=== PATIENT | female | born 1940 | race Asian ===

== ENCOUNTER 2016-04-13 08:12 | Inpatient (IN) | payer OTHER, MEDICARE ==
[2016-04-13] MEDS ORDERED: MECLIZINE HCL 25 MG TAB PO PRN (15:05)
[2016-04-13] MEDS ORDERED: IPRATROPIUM/ALBUTEROL 3 ML DEYVIAL NEB PRN (15:05)
[2016-04-13] MEDS ORDERED: BISACODYL 10 MG SUPP PR PRN (15:06)
--- NOTE | 2016-04-13 15:51 | PDOREHIP ---
Admission [facility] - Admission - 3 Day Assessment Period Admission Date/Day 1: 04/13/16 Day 2: 04/14/16 Day 3: 04/15/16 - Active Diagnoses Comorbidities and Co-existing Conditions at Admission: 47514. None of the Above - Skin Conditions Unhealed Pressure Ulcer (1 or more/Stage 1 or >)-Admission: 0. No
[2016-04-13] MEDS: ACETAMINOPHEN 650 MG/20.3 ML UDCUP PO PRN ×2 (16:51→17:25)
--- NOTE | 2016-04-13 17:01 | GHP ---
[f rep st] HISTORY AND PHYSICAL POST ADMISSION PHYSICIAN EVALUATION AND REHABILITATION TREATMENT PLAN DATE OF ADMISSION: 04/13/2016 DATE OF EVALUATION: 04/13/2016 TIME OF EVALUATION: 1510. REFERRING FACILITY: [facility]. REFERRING PHYSICIAN: Dr. Huitron CONSULTING PHYSICIAN: She was seen by Dr. Landa of Neurosurgery and Dr. Loera of Neurology/Interventional Radiology. REHABILITATION DIAGNOSIS: Debility following subarachnoid hemorrhage. IMPAIRMENT GROUP: 2.1. ETIOLOGIC DIAGNOSIS: Nontraumatic brain dysfunction. DATE OF ONSET: 03/22/2016 DATE OF SURGERY: 03/22/2016 HISTORY OF PRESENT ILLNESS: Mrs. Jenkins was admitted to [facility] after a syncopal event with possible brief loss of consciousness. She had a head CT which showed a subarachnoid hemorrhage, so she was transferred to [facility]. 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 She underwent coiling of the aneurysm per neuro whirley operator, Dr. Loera. She had an endoventricular drain placed by neurosurgeon, Dr. Landa on 03/22/2016, which was removed on 04/01/2016. Hospital course was complicated by a urinary tract infection, and respiratory failure due to decreased level of consciousness. She was intubated, extubated, and had to be intubated again. Additionally, she had a groin hematoma. She had anemia. There was diarrhea which was negative for Clostridium difficile. She had dysphagia which has resolved. There was a Dobbhoff tube placed for nutritional support which was subsequently removed. She had oral thrush, and she has had hyponatremia. STUDIES AND LABS IN THE HOSPITAL: I do not have a comprehensive list. PRECAUTIONS: She is a fall risk. ACTIVE COMORBIDITIES: She has no active tier 1, tier 2, or tier 3 comorbidities. PAST MEDICAL HISTORY: 1. Hypothyroidism. 2. Vertigo. PAST SURGICAL HISTORY: She has had a hysterectomy. PRE-HOSPITAL MEDICATIONS: She was taking estradiol and meclizine. ADMISSION MEDICATIONS: 1. Albuterol/ipratropium nebulizer q.4 hours p.r.n. 2. Calcium carbonate 500 mg p.o. twice daily. 3. Ciprofloxacin 500 mg p.o. twice daily through 04/19/2016. 4. Levothyroxine 50 mcg p.o. daily. 5. Meclizine 25 mg p.o. twice daily p.r.n. vertigo. 6. Mometasone 1 puff daily. 7. Pyridoxine 50 mg p.o. daily. 8. Sodium chloride 1000 mg p.o. three times daily. 9. Lactobacillus probiotic 1 capsule p.o. daily. 10. Ocuvite 1 p.o. daily. ALLERGIES: There are no known drug allergies. FAMILY HISTORY: She believes she has a brother who had a cerebral aneurysm. PSYCHOSOCIAL HISTORY: She is a since 2002. She lives with a male roommate at a condominium in [place]; however, she states she is selling the condominium and "done with men" as they leave her to do all the clean up. She is a nonsmoker. She does not use alcohol. She worked for [employer] at one time, and that is where she met her . 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 REVIEW OF SYSTEMS: She reports she has a mild headache, and she has had some right leg pain when she has been ambulating. She denies vision changes, difficulty swallowing, weakness, numbness or tingling of the extremities. She denies cough or dyspnea. She denies fevers or chills. She denies anorexia, nausea, vomiting or constipation. She denies dysuria or urinary frequency, and is not aware that she has had a diagnosis of a urinary tract infection. She denies joint pain or joint swelling. She is in good spirits and other than that , a 10-point review of systems is negative. PHYSICAL EXAM: VITAL SIGNS: Blood pressure is 158/82, heart rate is 79, respiratory rate is 14, oxygen saturation is 98% on room air, temperature is 37.1 degrees Centigrade. Her weight is 52.6 kg. Her body mass index is 24.2. GENERAL: This is a well-nourished, well-developed, petite woman who appears her chronologic age, cooperative and in no acute distress. HEENT: Extraocular movements are intact. Pupils are equal, round, and reactive to light and accommodation. Mucous membranes are moist. Dentition is in good condition. NECK: Supple. HEART: There is a regular rate and rhythm with no murmurs, rubs , or gallops. LUNGS: Clear to auscultation bilaterally. ABDOMEN: Soft, nontender, nondistended with normoactive bowel sounds and no hepatosplenomegaly. EXTREMITIES: There is no cyanosis, clubbing, or edema. Radial and dorsalis pedis pulses are 2+ bilaterally. NEUROLOGIC: She is alert and oriented x3. Cranial nerves 2-12 are grossly intact. There is no focal weakness. Sensation is intact to light touch. Deep tendon reflexes are globally hypoactive. SKIN: Warm and dry, and there is no skin breakdown noted. CURRENT LEVEL OF FUNCTION: Per the pre-admission screen, regarding diet, feeding, and swallowing, she was on a regular diet and she was able to feed herself independently. Regarding dressing for the lower body, she needed standby assist and voice cuing to stay on task, and it took extra time. Regarding toileting, she was dependent for lily care. She needed minimal assist for transfers, using grab bars and a front-wheeled walker. Regarding bladder, she was noted to be incontinent. Bed mobility required maximal assistance x2, but her bed mobility was considerably better on exam today. Transfers required minimal assistance. Balance required minimal assistance. Endurance was fair. Gait required moderate assistance with max cues to keep the walker close and occasional assistance to negotiate the environment. Regarding communication, she was noted to have slow processing with delayed and slurred speech. Regarding cognition, she had impairment of attention, memory and thought. She was considered to be a fall risk. IMPRESSION: Mrs. Ki Jenkins is a 76-year-old woman who suffered a subarachnoid hemorrhage from a left internal carotid artery aneurysm. The aneurysm has been coiled by Neurointerventional Radiology. She had an intraventricular drain placed. She had significant deficits including dysphagia which have resolved. She was diagnosed with a urinary tract infection which is being treated, and she had hyponatremia which is apparently adequately treated with salt tablets. She is left with debility. At this point , it is unclear whether it is specifically due to the subarachnoid hemorrhage versus prolonged hospitalization. She will benefit from physical therapy and occupational therapy to optimize her mobility and performance of activities of daily living and from speech and language pathology to assess and treat any cognitive dysfunction which might be continuing. She needs rehabilitation nursing care for bowel and bladder management including recent urinary incontinence, nutrition and fall risk. She will benefit from close medical management for risk of changes in neurologic function, for hyponatremia and for respiratory status. Her goal is to return to her own home versus her daughter's home with supportive home health care services. For a safe discharge, she will need to have independence with eating, grooming and bed mobility, modified independence for transfers and ambulation for household distances, and standby assistance for stair climbing. She should be tolerating a regular diet with appropriate number of calories. She will need to have cognition sufficient to be able to be left alone for short periods of time. She will have physical therapy, occupational therapy, and speech and language pathology for 60 minutes per day on 5-7 days per week. Her expected duration of stay is 10-14 days. It is anticipated that upon discharge, she will continue to benefit from home health services, including nursing, speech and language pathology, a nurse's aide, and occupational therapy. ASSESSMENT AND PLAN: 1. Debility with deficits to mobility and activities of daily living following subarachnoid hemorrhage from a left internal carotid artery aneurysm on 2015 and neurointerventional radiology coiling procedure. Physical and occupational therapy to optimize mobility and activities of daily living. 2. Possible cognitive impairment. Assessment and treatment per Speech and Language Pathology. 3. Hyponatremia. Continue salt tablets. Will check basic metabolic profile in the morning, and ideally the salt tablets can be tapered with continued monitoring of her electrolytes to ensure that she does not have recurrent hyponatremia. 4. Urinary tract infection. Continue ciprofloxacin as ordered out of the hospital through April 19, 2016. 5. Anemia. Will check a CBC in the morning. 6. History of vertigo. This is preexisting and predates the discovery of the aneurysm. Query whether the aneurysm was involved in causing the vertigo prior to its rupture. She will be continued on meclizine on an as-needed basis. 7. Hypothyroidism. Continue her levothyroxine supplement. 8. Postmenopausal and post hysterectomy. She was taking estradiol prior to her hospitalization. Has not been continued. If she has return of postmenopausal symptoms, will consider resuming. 9. History of respiratory failure while in the hospital. She comes with the prescriptions for albuterol/ipratropium nebulizer on a p.r.n. basis as well as an inhaled steroid. If her respiratory status remains stable and she is not requiring a nebulizer treatment, consider discontinuing the inhaled steroid. /[id number]/MODL MTDD
[2016-04-13] MEDS: SODIUM CHLORIDE 1,000 MG TAB PO SCH ×2 (17:25→23:53)
[2016-04-13] MEDS: oxyCODONE IR 5 MG TAB PO PRN (19:58)
[2016-04-13] MEDS: CIPROFLOXACIN 500 MG TAB PO SCH (23:53)
[2016-04-13] MEDS: CALCIUM CARBONATE 500 MG TAB PO SCH (23:53)
[2016-04-13] MEDS: ATORVASTATIN CALCIUM 10 MG TAB PO SCH (23:53)
[2016-04-14] MEDS: oxyCODONE IR 5 MG TAB PO PRN ×2 (00:18→20:18)
[2016-04-14] MEDS: LEVOTHYROXINE 50 MCG TAB PO SCH (05:02)
[2016-04-14 08:48] LABS: % IMMATURE GRANULYOCYTES 1.1 % (0.0-1.1); ABSOLUTE IMMATURE GRANULOCYTES 0.04 10^3/uL (0.00-0.10); ADD DIFF? NO; ADD MORPH? NO; ADD SCAN? NO; ATYPICAL LYMPHOCYTE FLAG 30 (0-99); FRAGMENT RBC FLAG 0 (0-99); HEMATOCRIT 29.7 % (38.0-47.0); HEMOGLOBIN 9.9 g/dL (12.6-16.3); LEFT SHIFT FLG 10 (0-99); LIPEMIA HEMOLYSIS FLAG 80 (0-99); MEAN CELL HEMOGLOBIN CONCENTR. 33.3 g/dL (32.4-36.7); MEAN CELL VOLUME 96.1 fL (81.5-99.8); MEAN PLATELET VOLUME 8.9 fL (8.7-11.7); PLATELET CLUMPS FLAG 10 (0-99); PLATELET COUNT 460 10^3/uL (150-400); RED BLOOD CELL COUNT 3.09 10^6/uL (4.18-5.33); RED CELL DISTRIBUTION WIDTH 16.2 % (11.5-15.2)
[2016-04-14] MEDS ORDERED: Herbals/Supplements -Info Only PO SCH (09:00)
[2016-04-14 09:03] LABS: ANION GAP 9 mEq/L (8-16); CALCIUM 8.9 mg/dL (8.5-10.4); CARBON DIOXIDE 26 mEq/l (22-31); CHLORIDE 99 mEq/L (97-110); CREATININE 0.5 mg/dL (0.6-1.0); GLOMERULAR FILTRATION RATE > 60; GLUCOSE 78 mg/dL (70-100); POTASSIUM 4.2 mEq/L (3.5-5.2); SODIUM 134 mEq/L (134-144)
[2016-04-14] MEDS: CALCIUM CARBONATE 500 MG TAB PO SCH ×2 (09:34→20:18)
[2016-04-14] MEDS: PYRIDOXINE HCL 25 MG TAB PO SCH (09:34)
[2016-04-14] MEDS: CIPROFLOXACIN 500 MG TAB PO SCH ×2 (09:34→20:18)
[2016-04-14] MEDS: SODIUM CHLORIDE 1,000 MG TAB PO SCH ×3 (09:34→20:18)
[2016-04-14] MEDS: PRESERVISION AREDS2 FORMULA EYE VIT 1 EACH PO SCH (09:35)
[2016-04-14] MEDS: CYANO/VITAMIN B12 1000 MCG TAB PO SCH (09:35)
[2016-04-14] MEDS: ACETAMINOPHEN 650 MG/20.3 ML UDCUP PO PRN ×2 (09:42→18:00)
--- NOTE | 2016-04-14 10:32 | SOAPPROG ---
SOAP Progress Note Assessment/Plan: Assessment: *Debility-PT and OT assessment today. Trial in parallel bars and gait training. Has UE/LE strength WFLs *Cogntive impairment-ST evaluated this am. *Hyponatremia- Na this am 134. Will d/c salt tabs in am. *UTI- On Cipro. Encourage fluids. Timed voids. *Anemia- H/H THIS AM 9.9/29.7. May see a slight drop as she hydrates. Recheck on Saturday. Plan: 04/14/16 10:32 Subjective: No c/o this am. No dizziness. Objective: Vital Signs Temp Pulse Resp BP Pulse Ox 36.8 C 80 15 145/60 H 95 04/14/16 06:22 04/14/16 06:22 04/14/16 06:22 04/14/16 06:22 04/14/16 06:22 Laboratory Results 04/14/16 05:15 04/14/16 05:15 04/13/16 04/14/16 04/15/16 05:59 05:59 05:59 Intake Total 250 236 Output Total 1300 200 Balance -1050 36 Physical Exam - Physical Exam General Appearance: WD/WN, no apparent distress EENT: PERRL/EOMI Neck: supple Respiratory: lungs clear Cardiac/Chest: No edema, No JVD Abdomen: non-tender, soft Neuro/Psych: alert (UE/LE strength is WFLs), normal mood/affect, oriented x 3 ICD10 Worksheet Patient Problems: Problems Problem Status Diagnosed Hyponatremia Acute SAH (subarachnoid hemorrhage) Acute UTI (urinary tract infection) Acute
[2016-04-14] MEDS: MOMETASONE 220MCG INHALER IH SCH (11:07)
[2016-04-14] MEDS: ATORVASTATIN CALCIUM 10 MG TAB PO SCH (20:18)
[2016-04-15] MEDS: LEVOTHYROXINE 50 MCG TAB PO SCH (05:27)
[2016-04-15] MEDS: PRESERVISION AREDS2 FORMULA EYE VIT 1 EACH PO SCH (09:31)
[2016-04-15] MEDS: CIPROFLOXACIN 500 MG TAB PO SCH ×2 (09:31→19:58)
[2016-04-15] MEDS: CYANO/VITAMIN B12 1000 MCG TAB PO SCH (09:31)
[2016-04-15] MEDS: CALCIUM CARBONATE 500 MG TAB PO SCH ×2 (09:31→19:59)
[2016-04-15] MEDS: SODIUM CHLORIDE 1,000 MG TAB PO SCH ×2 (09:32→16:25)
[2016-04-15] MEDS: PYRIDOXINE HCL 25 MG TAB PO SCH (09:39)
[2016-04-15] MEDS: MOMETASONE 220MCG INHALER IH SCH (09:39)
--- NOTE | 2016-04-15 11:30 | SOAPPROG ---
SOAP Progress Note Assessment/Plan: Assessment: *Debility-PT and OT assessment today. Trial in parallel bars and gait training. Has UE/LE strength WFLs *Cogntive impairment-Per ST patient has some word apraxia and mild cognitive deficits but no aphasia or dysphagia. *Hyponatremia- Na this am 134. Will d/c salt tabs in am. *UTI- On Cipro. Encourage fluids. Timed voids. *Anemia- H/H THIS AM 9.9/29.7. May see a slight drop as she hydrates. Recheck on Saturday. Plan: 04/14/16 10:32 04/15/16 11:26 Subjective: No new problems reported by nursing or therapy staff. She denies RICHEY, dizziness or visual disturbances. Objective: Vital Signs Temp Pulse Resp BP Pulse Ox 36.8 C 95 18 141/65 H 93 04/15/16 05:22 04/15/16 05:22 04/15/16 05:22 04/15/16 05:22 04/15/16 05:22 Laboratory Results 04/14/16 05:15 04/14/16 05:15 04/14/16 04/15/16 04/16/16 05:59 05:59 05:59 Intake Total 250 472 Output Total 1300 1200 Balance -1050 -728 Physical Exam - Physical Exam General Appearance: WD/WN, alert, no apparent distress EENT: PERRL/EOMI Neck: supple Respiratory: lungs clear, normal breath sounds Cardiac/Chest: No edema, No JVD Abdomen: normal bowel sounds, non-tender, soft Skin: normal color, warm/dry, other (Scalp incision healing well, [address]) Extremities: No swelling, No Berry's sign Neuro/Psych: alert, normal mood/affect, cognition abnormalities (mild cognitive deficits per ST) ICD10 Worksheet Patient Problems: Problems Problem Status Diagnosed Hyponatremia Acute SAH (subarachnoid hemorrhage) Acute UTI (urinary tract infection) Acute
[2016-04-15] MEDS: oxyCODONE IR 5 MG TAB PO PRN ×2 (14:21→19:58)
[2016-04-15] MEDS: ACETAMINOPHEN 650 MG/20.3 ML UDCUP PO PRN (18:44)
[2016-04-15] MEDS: ATORVASTATIN CALCIUM 10 MG TAB PO SCH (19:58)
[2016-04-16] MEDS: SODIUM CHLORIDE 1,000 MG TAB PO SCH ×2 (04:05→09:35)
[2016-04-16] MEDS: LEVOTHYROXINE 50 MCG TAB PO SCH (05:03)
--- NOTE | 2016-04-16 09:01 | SOAPPROG ---
TOM Progress Note Assessment/Plan: Assessment: 1. Debility with deficits to mobility and activities of daily living following subarachnoid hemorrhage from a left internal carotid artery aneurysm on 2015 and neurointerventional radiology coiling procedure. Physical and occupational therapy to optimize mobility and activities of daily living. 2. Possible cognitive impairment. Assessment and treatment per Speech and Language Pathology. 3. Hyponatremia. Continue salt tablets. Will check basic metabolic profile in the morning, and ideally the salt tablets can be tapered with continued monitoring of her electrolytes to ensure that she does not have recurrent hyponatremia. 4. Urinary tract infection. Continue ciprofloxacin as ordered out of the hospital through April 19, 2016. 5. Anemia. Will check a CBC in the morning. 6. History of vertigo. This is preexisting and predates the discovery of the aneurysm. Query whether the aneurysm was involved in causing the vertigo prior to its rupture. She will be continued on meclizine on an as-needed basis. 7. Hypothyroidism. Continue her levothyroxine supplement. 8. Postmenopausal and post hysterectomy. She was taking estradiol prior to her hospitalization. Has not been continued. If she has return of postmenopausal symptoms, will consider resuming. 9. History of respiratory failure while in the hospital. She comes with the prescriptions for albuterol/ipratropium nebulizer on a p.r.n. basis as well as an inhaled steroid. If her respiratory status remains stable and she is not requiring a nebulizer treatment, consider discontinuing the inhaled steroid. 04/16/16 09:01 Objective: Vital Signs Temp Pulse Resp BP Pulse Ox 36.9 C 89 18 137/67 H 92 04/15/16 20:00 04/15/16 20:00 04/15/16 20:00 04/15/16 20:00 04/15/16 20:00 Laboratory Results 04/14/16 05:15 04/14/16 05:15 04/15/16 04/16/16 04/17/16 05:59 05:59 05:59 Intake Total 472 472 200 Output Total 1200 350 Balance -728 122 200 ICD10 Worksheet Patient Problems: Problems Problem Status Diagnosed Hyponatremia Acute SAH (subarachnoid hemorrhage) Acute UTI (urinary tract infection) Acute
[2016-04-16] MEDS: PRESERVISION AREDS2 FORMULA EYE VIT 1 EACH PO SCH (09:33)
[2016-04-16] MEDS: CALCIUM CARBONATE 500 MG TAB PO SCH ×2 (09:33→19:41)
[2016-04-16] MEDS: CIPROFLOXACIN 500 MG TAB PO SCH ×2 (09:34→19:41)
[2016-04-16] MEDS: MOMETASONE 220MCG INHALER IH SCH (09:34)
[2016-04-16] MEDS: CYANO/VITAMIN B12 1000 MCG TAB PO SCH (09:51)
[2016-04-16] MEDS: PYRIDOXINE HCL 25 MG TAB PO SCH (11:58)
--- NOTE | 2016-04-16 12:46 | SOAPPROG ---
SOAP Progress Note Assessment/Plan: Assessment: 76 yo F s/p subarachnoid hemorrhage from a left internal carotid artery aneurysm on 03/22/2016 and neurointerventional radiology coiling procedure: * Debility with deficits to mobility and activities of daily living. Initial FIM 62 on 04/16/16. Decreased safety awareness. Walked 100' FWW SBA. Min A bed mobility, SBA - CGA sit to stand. ADLs set-up, supervision to CGA except bathing min A. Decreased sitting balance with listing to L. Continue physical and occupational therapy to optimize mobility and activities of daily living. * Cognitive impairment, with STM deficit. Continue treatment per Speech and Language Pathology. * Hyponatremia. Continue salt tablets. Na 134 2on 04/14/16; change NaCl to 1000 mg QD from TID starting 04/16/16; recheck BMP 04/18/16. * Urinary tract infection. Continue ciprofloxacin as ordered out of the hospital through April 19, 2016. * Anemia. H/H 9.9/29.7 on 04/14/16. Recheck 04/18/16.. * History of vertigo. Not using meclizine; may be resolved. * Hypothyroidism. Continue her levothyroxine supplement. * Postmenopausal and post hysterectomy. She was taking estradiol prior to her hospitalization. Has not been continued. If she has return of postmenopausal symptoms, will consider resuming. * History of respiratory failure while in the hospital. Not using albuterol/ ipratropium nebulizer; change to MDI PRN. D/C inhaled steroid. Attended staffing, 15 min. 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 May discharge to own home ([place] single level condo in [place]) vs daughter's multi-level home. Expected LOS 2 more weeks with tentative discharge date of 04/27/16. 04/16/16 12:34 Subjective: No complaints. Slept well. Has HAs, responding to meds. Objective: Vital Signs Temp Pulse Resp BP Pulse Ox 36.9 C 89 18 137/67 H 92 04/15/16 20:00 04/15/16 20:00 04/15/16 20:00 04/15/16 20:00 04/15/16 20:00 Laboratory Results 04/14/16 05:15 04/14/16 05:15 01/04/16/16 04/17/16 05:59 05:59 05:59 Intake Total 472 472 650 Output Total 1200 350 Balance -728 122 650 - Time Spent With Patient Time Spent With Patient: Greater than 35 minutes floor time today, including more than 50% of time in coordination of care during staffing meeting, and counseling patient. Physical Exam - Physical Exam General Appearance: WD/WN, alert, no apparent distress Respiratory: normal breath sounds, No crackles, No rhonchi, No wheezing Cardiac/Chest: regular rate, rhythm, No edema Skin: normal color, warm/dry Neuro/Psych: alert, normal mood/affect ICD10 Worksheet Patient Problems: Problems Problem Status Diagnosed Hyponatremia Acute SAH (subarachnoid hemorrhage) Acute UTI (urinary tract infection) Acute
[2016-04-16] MEDS ORDERED: IPRATROPIUM/ALBUTEROL 3 ML DEYVIAL IH PRN (12:48)
[2016-04-16] MEDS: oxyCODONE IR 5 MG TAB PO PRN (15:27)
[2016-04-16] MEDS: ACETAMINOPHEN 650 MG/20.3 ML UDCUP PO PRN (19:01)
[2016-04-16] MEDS: ATORVASTATIN CALCIUM 10 MG TAB PO SCH (19:41)
[2016-04-17] MEDS: ACETAMINOPHEN 650 MG/20.3 ML UDCUP PO PRN (03:07)
[2016-04-17] MEDS: LEVOTHYROXINE 50 MCG TAB PO SCH (05:57)
[2016-04-17] MEDS: [UNRECOGNIZED DRUG - OTHER] PO SCH (09:02)
[2016-04-17] MEDS: CYANO/VITAMIN B12 1000 MCG TAB PO SCH (09:03)
[2016-04-17] MEDS: PYRIDOXINE HCL 25 MG TAB PO SCH (09:03)
[2016-04-17] MEDS: SODIUM CHLORIDE 1,000 MG TAB PO SCH (09:03)
[2016-04-17] MEDS: CALCIUM CARBONATE 500 MG TAB PO SCH ×2 (09:03→19:40)
[2016-04-17] MEDS: CIPROFLOXACIN 500 MG TAB PO SCH ×2 (09:03→19:40)
[2016-04-17] MEDS ORDERED: IPRATROPIUM/ALBUTEROL 3 ML DEYVIAL IH PRN (09:24)
--- NOTE | 2016-04-17 14:51 | SOAPPROG ---
SOAP Progress Note Assessment/Plan: Assessment: 76 yo F s/p subarachnoid hemorrhage from a left internal carotid artery aneurysm on 03/22/2016 and neurointerventional radiology coiling procedure: * Debility with deficits to mobility and activities of daily living. Initial FIM 62 on 04/16/16. Decreased safety awareness. Walked 100' FWW SBA. Min A bed mobility, SBA - CGA sit to stand. ADLs set-up, supervision to CGA except bathing min A. Decreased sitting balance with listing to L. Continue physical and occupational therapy to optimize mobility and activities of daily living. * Cognitive impairment, with STM deficit. Continue treatment per Speech and Language Pathology. * Hyponatremia. Continue salt tablets. Na 134 2on 04/14/16; change NaCl to 1000 mg QD from TID starting 04/16/16; recheck BMP 04/18/16. * Urinary tract infection. Continue ciprofloxacin as ordered out of the hospital through April 19, 2016. * Anemia. H/H 9.9/29.7 on 04/14/16. Recheck 04/18/16. * History of vertigo. Not using meclizine; may be resolved. * Hypothyroidism. Continue her levothyroxine supplement. * Postmenopausal and post hysterectomy. She was taking estradiol prior to her hospitalization. Has not been continued. If she has return of postmenopausal symptoms, will consider resuming. * History of respiratory failure while in the hospital. Not using albuterol/ ipratropium nebulizer; change to MDI PRN. D/C inhaled steroid. * Will continue PICC until after blood draws tomorrow. Will d/c if no further blood draws are planned. May discharge to own home ([place] single level condo in [place]) vs daughter's multi-level home. Expected LOS 2 more weeks with tentative discharge date of 04/27/16. 04/17/16 14:50 Subjective: No complaints. Has some fatigue after PT. Denies cough, dyspnea, n/v/c/d, dysuria. Objective: Vital Signs Temp Pulse Resp BP Pulse Ox 36.6 C 80 16 144/74 H 97 04/17/16 08:00 04/17/16 08:00 04/17/16 08:00 04/17/16 08:00 04/17/16 08:00 Laboratory Results 04/14/16 05:15 04/14/16 05:15 04/16/16 04/17/16 04/18/16 05:59 05:59 05:59 Intake Total 472 1150 880 Output Total 350 700 200 Balance 122 450 680 Physical Exam - Physical Exam General Appearance: WD/WN, alert, no apparent distress Respiratory: normal breath sounds, No crackles, No rhonchi, No wheezing Cardiac/Chest: regular rate, rhythm, No edema Skin: normal color, warm/dry Neuro/Psych: alert, normal mood/affect, oriented x 3, abnormal gait (slow, slightly wide-based, step-through pattern, with FWW.) ICD10 Worksheet Patient Problems: Problems Problem Status Diagnosed Hyponatremia Acute SAH (subarachnoid hemorrhage) Acute UTI (urinary tract infection) Acute
[2016-04-17] MEDS: ACETAMINOPHEN 325 MG TAB PO PRN (19:39)
[2016-04-17] MEDS: ATORVASTATIN CALCIUM 10 MG TAB PO SCH (19:40)
[2016-04-18] MEDS: LEVOTHYROXINE 50 MCG TAB PO SCH (05:54)
[2016-04-18] MEDS: ACETAMINOPHEN 325 MG TAB PO PRN ×2 (05:58→20:33)
[2016-04-18 08:24] LABS: HEMATOCRIT 30.4 % (38.0-47.0); HEMOGLOBIN 10.1 g/dL (12.6-16.3)
[2016-04-18 08:42] LABS: ANION GAP 7 mEq/L (8-16); CALCIUM 9.5 mg/dL (8.5-10.4); CARBON DIOXIDE 28 mEq/l (22-31); CHLORIDE 104 mEq/L (97-110); CREATININE 0.6 mg/dL (0.6-1.0); GLOMERULAR FILTRATION RATE > 60; GLUCOSE 90 mg/dL (70-100); POTASSIUM 3.9 mEq/L (3.5-5.2); SODIUM 139 mEq/L (134-144)
[2016-04-18] MEDS: [UNRECOGNIZED DRUG - OTHER] PO SCH (08:42)
[2016-04-18] MEDS: CALCIUM CARBONATE 500 MG TAB PO SCH ×2 (08:42→20:33)
[2016-04-18] MEDS: CYANO/VITAMIN B12 1000 MCG TAB PO SCH (08:42)
[2016-04-18] MEDS: CIPROFLOXACIN 500 MG TAB PO SCH ×2 (08:42→20:33)
[2016-04-18] MEDS: PYRIDOXINE HCL 25 MG TAB PO SCH (08:42)
[2016-04-18] MEDS: SODIUM CHLORIDE 1,000 MG TAB PO SCH (08:43)
--- NOTE | 2016-04-18 10:45 | SOAPPROG ---
SOAP Progress Note Assessment/Plan: Assessment: 76 yo F s/p subarachnoid hemorrhage from a left internal carotid artery aneurysm on 03/22/2016 and neurointerventional radiology coiling procedure: * Debility with deficits to mobility and activities of daily living. Initial FIM 62 on 04/16/16. Decreased safety awareness. Walked 100' FWW SBA. Min A bed mobility, SBA - CGA sit to stand. ADLs set-up, supervision to CGA except bathing min A. Decreased sitting balance with listing to L. Continue physical and occupational therapy to optimize mobility and activities of daily living. * Cognitive impairment, with STM deficit. Continue treatment per Speech and Language Pathology. * Hyponatremia. Resolved on BMP 04/18/16, after salt tablets tapered form TID to QD. D/C salt tablets starting 04/19/16. * Urinary tract infection. Continue ciprofloxacin as ordered out of the hospital through April 19, 2016. * Anemia. H/H 9.9/29.7 on 04/14/16. Improving 04/18/16. * History of vertigo. Not using meclizine; may be resolved. * Hypothyroidism. Continue her levothyroxine supplement. * Postmenopausal and post hysterectomy. She was taking estradiol prior to her hospitalization. Has not been continued. If she has return of postmenopausal symptoms, will consider resuming. * History of respiratory failure while in the hospital. Not using albuterol/ ipratropium nebulizer; change to MDI PRN. D/C inhaled steroid. * Will continue PICC until after blood draws tomorrow. Will d/c if no further blood draws are planned. May discharge to own home ([place] single level condo in [place]) vs daughter's multi-level home. Expected LOS 2 more weeks with tentative discharge date of 04/27/16. 04/18/16 10:43 Subjective: No complaints. Wishes she had "oriental" food. Objective: Vital Signs Temp Pulse Resp BP Pulse Ox 36.8 C 80 16 126/73 H 97 04/18/16 06:49 04/18/16 06:49 04/18/16 06:49 04/18/16 06:49 04/18/16 06:49 Laboratory Results 04/18/16 06:10 04/18/16 06:10 04/17/16 04/18/16 04/19/16 05:59 05:59 05:59 Intake Total 1150 1200 200 Output Total 700 575 400 Balance 450 625 -200 Physical Exam - Physical Exam General Appearance: WD/WN, alert, no apparent distress Respiratory: No respiratory distress, No accessory muscle use Skin: normal color, warm/dry Neuro/Psych: alert, normal mood/affect, oriented x 3, other (Onserved ambulating with PT using FWW, step-through pattern.) ICD10 Worksheet Patient Problems: Problems Problem Status Diagnosed Hyponatremia Acute SAH (subarachnoid hemorrhage) Acute UTI (urinary tract infection) Acute
[2016-04-18] MEDS: ATORVASTATIN CALCIUM 10 MG TAB PO SCH (20:33)
[2016-04-19] MEDS: LEVOTHYROXINE 50 MCG TAB PO SCH (05:35)
[2016-04-19] MEDS: CALCIUM CARBONATE 500 MG TAB PO SCH ×2 (08:55→20:56)
[2016-04-19] MEDS: PYRIDOXINE HCL 25 MG TAB PO SCH (08:55)
[2016-04-19] MEDS: [UNRECOGNIZED DRUG - OTHER] PO SCH (08:56)
[2016-04-19] MEDS: SENNOSIDES 1 TAB PO PRN (08:56)
[2016-04-19] MEDS: CIPROFLOXACIN 500 MG TAB PO SCH (08:56)
[2016-04-19] MEDS: CYANO/VITAMIN B12 1000 MCG TAB PO SCH (08:57)
--- NOTE | 2016-04-19 15:02 | SOAPPROG ---
SOAP Progress Note Assessment/Plan: Assessment: 76 yo F s/p subarachnoid hemorrhage from a left internal carotid artery aneurysm on 03/22/2016 and neurointerventional radiology coiling procedure: * Debility with deficits to mobility and activities of daily living. Initial FIM 62 on 04/16/16. Decreased safety awareness. Walked 100' FWW SBA. Min A bed mobility, SBA - CGA sit to stand. ADLs set-up, supervision to CGA except bathing min A. Decreased sitting balance with listing to L. Continue physical and occupational therapy to optimize mobility and activities of daily living. * Cognitive impairment, with STM deficit. Continue treatment per Speech and Language Pathology. * Hyponatremia. Resolved on BMP 04/18/16, after salt tablets tapered form TID to QD. D/C salt tablets starting 04/19/16. * Urinary tract infection. Continue ciprofloxacin as ordered out of the hospital through April 19, 2016. * Anemia. H/H 9.9/29.7 on 04/14/16. Improving 04/18/16. * Remove suture and zandra 04/19/16, >2 weeks since surgery. * History of vertigo. Not using meclizine; may be resolved. * Hypothyroidism. Continue her levothyroxine supplement. * Postmenopausal and post hysterectomy. She was taking estradiol prior to her hospitalization. Has not been continued. If she has return of postmenopausal symptoms, will consider resuming. * History of respiratory failure while in the hospital. Not using albuterol/ ipratropium nebulizer; change to MDI PRN. D/C inhaled steroid. * Will continue PICC until after blood draws tomorrow. Will d/c if no further blood draws are planned. May discharge to own home ([facility] single level condo in [place]) vs daughter's multi-level home. Expected LOS 2 more weeks with tentative discharge date of 04/27/16. 04/19/16 15:01 Subjective: No complaints. Nursing asks re retained sutures and zandra in scalp. Objective: Vital Signs Temp Pulse Resp BP Pulse Ox 37 C 81 16 137/75 H 96 04/19/16 06:33 04/19/16 06:33 04/19/16 06:33 04/19/16 06:33 04/19/16 06:33 Laboratory Results 04/18/16 06:10 04/18/16 06:10 04/18/16 04/19/16 04/20/16 05:59 05:59 05:59 Intake Total 1200 1126 300 Output Total 575 1200 400 Balance 851 -74 -100 Physical Exam - Physical Exam General Appearance: WD/WN, alert, no apparent distress EENT: other (Suture X 1 and zandra X 2 in scalp. No dehescence, discharge or erytehma.) Respiratory: No respiratory distress, No accessory muscle use Skin: normal color, warm/dry Neuro/Psych: no motor/sensory deficits, alert, normal mood/affect, oriented x 3 ICD10 Worksheet Patient Problems: Problems Problem Status Diagnosed Hyponatremia Acute SAH (subarachnoid hemorrhage) Acute UTI (urinary tract infection) Acute
[2016-04-19] MEDS: ACETAMINOPHEN 325 MG TAB PO PRN ×2 (17:29→21:02)
[2016-04-19] MEDS: ATORVASTATIN CALCIUM 10 MG TAB PO SCH (20:56)
[2016-04-20] MEDS: LEVOTHYROXINE 50 MCG TAB PO SCH (06:14)
[2016-04-20] MEDS: SENNOSIDES 1 TAB PO PRN ×2 (06:31→08:30)
[2016-04-20] MEDS: PYRIDOXINE HCL 25 MG TAB PO SCH (08:30)
[2016-04-20] MEDS: [UNRECOGNIZED DRUG - OTHER] PO SCH (08:30)
[2016-04-20] MEDS: CALCIUM CARBONATE 500 MG TAB PO SCH ×2 (08:30→19:45)
[2016-04-20] MEDS: CYANO/VITAMIN B12 1000 MCG TAB PO SCH (08:30)
[2016-04-20] MEDS: PSYLLIUM METAMUCIL 1 PKT PO SCH (10:57)
--- NOTE | 2016-04-20 13:06 | SOAPPROG ---
SOAP Progress Note Assessment/Plan: Assessment: 76 yo F s/p subarachnoid hemorrhage from a left internal carotid artery aneurysm on 03/22/2016 and neurointerventional radiology coiling procedure: * Debility with deficits to mobility and activities of daily living. Initial FIM 62 on 04/16/16. Decreased safety awareness. Walked 100' FWW SBA. Min A bed mobility, SBA - CGA sit to stand. ADLs set-up, supervision to CGA except bathing min A. Decreased sitting balance with listing to L. Continue physical and occupational therapy to optimize mobility and activities of daily living. * Cognitive impairment, with STM deficit. Continue treatment per Speech and Language Pathology. Encouraged participation and to communicate with INSPECTOR FIBROUS WALLBOARD re HAs. * Hyponatremia. Resolved on BMP 04/18/16, after salt tablets tapered form TID to QD. D/C salt tablets starting 04/19/16. * Urinary tract infection. Completed ciprofloxacin as ordered out of the hospital through April 19, 2016. * Anemia. H/H 9.9/29.7 on 04/14/16. Improving 04/18/16. * Removed suture and zandra 04/19/16, >2 weeks since surgery. * History of vertigo. Not using meclizine; may be resolved. * Hypothyroidism. Continue her levothyroxine supplement. * Postmenopausal and post hysterectomy. She was taking estradiol prior to her hospitalization. Has not been continued. If she has return of postmenopausal symptoms, will consider resuming. * History of respiratory failure while in the hospital. Not using albuterol/ ipratropium nebulizer; change to MDI PRN. D/C inhaled steroid. * Will continue PICC until after blood draws tomorrow. Will d/c if no further blood draws are planned. May discharge to own home ([facility] single level condo in [place]) vs daughter's multi-level home. Expected LOS 2 more weeks with tentative discharge date of 04/27/16. 04/20/16 13:04 Subjective: Reports improved memory. Says INSPECTOR FIBROUS WALLBOARD gives her a headache. O/W w/out complaint. No f/c, cough/dyspnea, pain, n/v/c/d. Objective: Vital Signs Temp Pulse Resp BP Pulse Ox 37.1 C 76 16 122/63 H 97 04/20/16 06:45 04/20/16 06:45 04/20/16 06:45 04/20/16 06:45 04/20/16 06:45 Laboratory Results 04/18/16 06:10 04/18/16 06:10 04/19/16 04/20/16 04/21/16 05:59 05:59 05:59 Intake Total 1126 800 240 Output Total 1200 1300 250 Balance -74 -500 -10 Physical Exam - Physical Exam General Appearance: WD/WN, alert, no apparent distress Respiratory: normal breath sounds, No crackles, No rhonchi, No wheezing Cardiac/Chest: regular rate, rhythm, No edema Skin: normal color, warm/dry Neuro/Psych: no motor/sensory deficits, alert, normal mood/affect, oriented x 3 ICD10 Worksheet Patient Problems: Problems Problem Status Diagnosed Hyponatremia Acute SAH (subarachnoid hemorrhage) Acute UTI (urinary tract infection) Acute
[2016-04-20] MEDS: ACETAMINOPHEN 325 MG TAB PO PRN (19:45)
[2016-04-20] MEDS: ATORVASTATIN CALCIUM 10 MG TAB PO SCH (19:45)
[2016-04-21] MEDS: LEVOTHYROXINE 50 MCG TAB PO SCH (06:10)
[2016-04-21] MEDS: PSYLLIUM METAMUCIL 1 PKT PO SCH (06:15)
[2016-04-21] MEDS: CALCIUM CARBONATE 500 MG TAB PO SCH ×2 (09:03→19:23)
[2016-04-21] MEDS: CYANO/VITAMIN B12 1000 MCG TAB PO SCH (09:03)
[2016-04-21] MEDS: [UNRECOGNIZED DRUG - OTHER] PO SCH (09:03)
[2016-04-21] MEDS: PYRIDOXINE HCL 25 MG TAB PO SCH (09:03)
--- NOTE | 2016-04-21 12:55 | SOAPPROG ---
SOAP Progress Note Assessment/Plan: Assessment: 76 yo F s/p subarachnoid hemorrhage from a left internal carotid artery aneurysm on 03/22/2016 and neurointerventional radiology coiling procedure: * Debility with deficits to mobility and activities of daily living. Initial FIM 62 on 04/16/16. Decreased safety awareness. Walked 100' FWW SBA. Min A bed mobility, SBA - CGA sit to stand. ADLs set-up, supervision to CGA except bathing min A. Decreased sitting balance with listing to L. Continue physical and occupational therapy to optimize mobility and activities of daily living. * Cognitive impairment, with STM deficit. Continue treatment per Speech and Language Pathology. Encouraged participation and to communicate with MANAGER OF PMO re HAs. * Hyponatremia. Resolved on BMP 04/18/16, after salt tablets tapered form TID to QD. D/C salt tablets starting 04/19/16. * Urinary tract infection. Completed ciprofloxacin as ordered out of the hospital through April 19, 2016. * Anemia. H/H 9.9/29.7 on 04/14/16. Improving 04/18/16. * Removed suture and zandra 04/19/16, >2 weeks since surgery. * History of vertigo. Not using meclizine; may be resolved. * Hypothyroidism. Continue her levothyroxine supplement. * Postmenopausal and post hysterectomy. She was taking estradiol prior to her hospitalization. Has not been continued. If she has return of postmenopausal symptoms, will consider resuming. * History of respiratory failure while in the hospital. Not using albuterol/ ipratropium nebulizer; change to MDI PRN. D/C inhaled steroid. * D/C PICC 04/21/16. May discharge to own home ([facility] single level condo in [place]) vs daughter's multi-level home. Expected LOS 2 more weeks with tentative discharge date of 04/27/16. 04/21/16 12:53 Subjective: No complaints. Walking farther. Objective: Vital Signs Temp Pulse Resp BP Pulse Ox 36.9 C 78 16 124/69 H 96 04/21/16 07:14 04/21/16 07:14 04/21/16 07:14 04/21/16 07:14 04/21/16 07:14 Laboratory Results 04/18/16 06:10 04/18/16 06:10 04/20/16 04/21/16 04/22/16 05:59 05:59 05:59 Intake Total 800 840 600 Output Total 1300 2000 200 Balance -500 -1160 400 ICD10 Worksheet Patient Problems: Problems Problem Status Diagnosed Hyponatremia Acute SAH (subarachnoid hemorrhage) Acute UTI (urinary tract infection) Acute
[2016-04-21] MEDS: ATORVASTATIN CALCIUM 10 MG TAB PO SCH (19:23)
[2016-04-21] MEDS: ACETAMINOPHEN 325 MG TAB PO PRN (19:26)
[2016-04-22] MEDS: LEVOTHYROXINE 50 MCG TAB PO SCH (06:19)
[2016-04-22] MEDS: CALCIUM CARBONATE 500 MG TAB PO SCH ×2 (08:38→19:43)
[2016-04-22] MEDS: [UNRECOGNIZED DRUG - OTHER] PO SCH (08:38)
[2016-04-22] MEDS: CYANO/VITAMIN B12 1000 MCG TAB PO SCH (08:38)
[2016-04-22] MEDS: PSYLLIUM METAMUCIL 1 PKT PO SCH (08:39)
[2016-04-22] MEDS: PYRIDOXINE HCL 25 MG TAB PO SCH (08:39)
[2016-04-22] MEDS: MOMETASONE 220MCG INHALER IH SCH (11:08)
--- NOTE | 2016-04-22 12:38 | SOAPPROG ---
SOAP Progress Note Assessment/Plan: Assessment: 76 yo F s/p subarachnoid hemorrhage from a left internal carotid artery aneurysm on 03/22/2016 and neurointerventional radiology coiling procedure: * Debility with deficits to mobility and activities of daily living. Initial FIM 62 on 04/16/16. Decreased safety awareness. Walked 100' FWW SBA as of ; 200' as of 04/21/16. Min A bed mobility, SBA - CGA sit to stand. ADLs set- up, supervision to CGA except bathing min A. Decreased sitting balance with listing to L. Continue physical and occupational therapy to optimize mobility and activities of daily living. * Cognitive impairment, with STM deficit. Continue treatment per Speech and Language Pathology. Encouraged participation and to communicate with PATTERN VAULT CLERK re HAs. * Hyponatremia. Resolved on BMP 04/18/16, after salt tablets tapered form TID to QD. D/C salt tablets starting 04/19/16. Repeat BMP 04/23/16. * Urinary tract infection. Completed ciprofloxacin as ordered out of the hospital through April 19, 2016. * Anemia. H/H 9.9/29.7 on 04/14/16. Improving 04/18/16. Repeat CBC 04/13/16. * Removed suture and zandra 04/19/16, >2 weeks since surgery. * H/O asthma? Resume inhaled corticosteroid for cough starting 04/22/16. * History of vertigo. Not using meclizine; may be resolved. * Hypothyroidism. Continue her levothyroxine supplement. * Postmenopausal and post hysterectomy. She was taking estradiol prior to her hospitalization. Has not been continued. If she has return of postmenopausal symptoms, will consider resuming. * History of respiratory failure while in the hospital. Not using albuterol/ ipratropium nebulizer; change to MDI PRN. D/C inhaled steroid. * D/C PICC 04/21/16. May discharge to own home ([facility] single level condo in [place]) vs daughter's multi-level home. Expected LOS 2 more weeks with tentative discharge date of 04/27/16. 04/22/16 12:36 Subjective: No complaints. RICHEY better. Says she's working hard with PT. Had coughing and reported to nurse that she used Asmanex at home and would like to restart. Objective: Vital Signs Temp Pulse Resp BP Pulse Ox 36.8 C 74 16 123/66 H 95 04/22/16 06:45 04/22/16 06:45 04/22/16 06:45 04/22/16 06:45 04/22/16 06:45 Laboratory Results 04/18/16 06:10 04/18/16 06:10 04/21/16 04/22/16 04/23/16 05:59 05:59 05:59 Intake Total 840 1680 600 Output Total 1999 1400 425 Balance -1160 280 175 Physical Exam - Physical Exam General Appearance: WD/WN, alert, no apparent distress Respiratory: normal breath sounds, No crackles, No rhonchi, No wheezing Cardiac/Chest: edema Skin: normal color, warm/dry Neuro/Psych: no motor/sensory deficits, alert, normal mood/affect, oriented x 3 ICD10 Worksheet Patient Problems: Problems Problem Status Diagnosed Hyponatremia Acute SAH (subarachnoid hemorrhage) Acute UTI (urinary tract infection) Acute
[2016-04-22] MEDS ORDERED: BACITRACIN OINTMENT 1 PACKET TP ONE (16:25)
[2016-04-22] MEDS: ACETAMINOPHEN 325 MG TAB PO PRN (19:43)
[2016-04-22] MEDS: ATORVASTATIN CALCIUM 10 MG TAB PO SCH (19:43)
[2016-04-23] MEDS: LEVOTHYROXINE 50 MCG TAB PO SCH (04:53)
[2016-04-23] MEDS: CALCIUM CARBONATE 500 MG TAB PO SCH ×2 (07:21→19:41)
[2016-04-23] MEDS: [UNRECOGNIZED DRUG - OTHER] PO SCH (07:21)
[2016-04-23] MEDS: CYANO/VITAMIN B12 1000 MCG TAB PO SCH (07:21)
[2016-04-23] MEDS: MOMETASONE 220MCG INHALER IH SCH (07:21)
[2016-04-23] MEDS: PSYLLIUM METAMUCIL 1 PKT PO SCH (07:23)
[2016-04-23] MEDS: PYRIDOXINE HCL 25 MG TAB PO SCH (07:23)
[2016-04-23] MEDS: SENNOSIDES 1 TAB PO PRN (07:24)
[2016-04-23 08:27] LABS: % IMMATURE GRANULYOCYTES 0.4 % (0.0-1.1); ABSOLUTE IMMATURE GRANULOCYTES 0.01 10^3/uL (0.00-0.10); ADD DIFF? NO; ADD MORPH? NO; ADD SCAN? NO; ATYPICAL LYMPHOCYTE FLAG 80 (0-99); FRAGMENT RBC FLAG 60 (0-99); HEMATOCRIT 32.5 % (38.0-47.0); HEMOGLOBIN 10.7 g/dL (12.6-16.3); LEFT SHIFT FLG 20 (0-99); LIPEMIA HEMOLYSIS FLAG 80 (0-99); MEAN CELL HEMOGLOBIN 32.6 pg (27.9-34.1); MEAN CELL HEMOGLOBIN CONCENTR. 32.9 g/dL (32.4-36.7); MEAN CELL VOLUME 99.1 fL (81.5-99.8); MEAN PLATELET VOLUME 10.2 fL (8.7-11.7); PLATELET CLUMPS FLAG 0 (0-99); PLATELET COUNT 248 10^3/uL (150-400); RED BLOOD CELL COUNT 3.28 10^6/uL (4.18-5.33); RED CELL DISTRIBUTION WIDTH 15.1 % (11.5-15.2)
[2016-04-23 08:39] LABS: ANION GAP 8 mEq/L (8-16); CALCIUM 8.9 mg/dL (8.5-10.4); CARBON DIOXIDE 24 mEq/l (22-31); CHLORIDE 108 mEq/L (97-110); CREATININE 0.5 mg/dL (0.6-1.0); GLOMERULAR FILTRATION RATE > 60; GLUCOSE 82 mg/dL (70-100); POTASSIUM 4.2 mEq/L (3.5-5.2); SODIUM 140 mEq/L (134-144)
--- NOTE | 2016-04-23 10:03 | SOAPPROG ---
SOAP Progress Note Assessment/Plan: Assessment: 76 yo F s/p subarachnoid hemorrhage from a left internal carotid artery aneurysm on 03/22/2016 and neurointerventional radiology coiling procedure: * Debility with deficits to mobility and activities of daily living. Initial FIM 70 on 04/16/16; improved to 90 on 04/23/16. Decreased safety awareness. Walked 200' FWW SBA. SBA bed mobility, t'fers. Stairs with 2 railings. S for ADLs but had posterior LOB in shower. Continue physical and occupational therapy to optimize mobility and activities of daily living. * Cognitive impairment, with STM deficit. Continue treatment per Speech and Language Pathology. * Hyponatremia. Resolved on BMP 04/18/16, after salt tablets tapered form TID to QD. D/C salt tablets starting 04/19/16. Normal BMP 04/23/16. * Urinary tract infection. Completed ciprofloxacin as ordered out of the hospital through April 19, 2016. * Anemia. H/H 9.9/29.7 on 04/14/16. Improving 04/18/16. Improving on CBC . * Neutropenia: has low WBCs on prior CBC 04/18/16; now frankly neutropenic though mild; low lymphocytes as well. Due to viral URI? No other S/Sx infection. Check peripheral smear, B12, folate, ESR, CRP. Repeat CBC 04/26/16. * Removed suture and zandra 04/19/16, >2 weeks since surgery. * H/O asthma? Resumed inhaled corticosteroid for cough starting 04/22/16. * History of vertigo. Not using meclizine; may be resolved. * Hypothyroidism. Continue her levothyroxine supplement. * Postmenopausal and post hysterectomy. She was taking estradiol prior to her hospitalization. Has not been continued. If she has return of postmenopausal symptoms, will consider resuming. * History of respiratory failure while in the hospital. Not using albuterol/ ipratropium nebulizer; change to MDI PRN. D/C inhaled steroid. * D/C PICC 04/21/16. Attended staffing, 15 min. D/W case mgmt, nursing, PT, OT, ADVERTISING MATERIAL DISTRIBUTOR. Plans to discharge to her daughter's home; daughter will take 2 weeks off from work to assist. Family conference 04/25/16; plan for discharge 04/27/16. 04/23/16 11:19 Subjective: No complaints. Denies f/c, dyspnea. Has occ. cough, typical for her in the winter months, for which her PCP prescribed steroid inhaler. Does not feel like she has URI, though she's sniffling. Objective: Vital Signs Temp Pulse Resp BP Pulse Ox 36.8 C 75 16 130/67 H 96 04/23/16 07:51 04/23/16 07:51 04/23/16 07:51 04/23/16 07:51 04/23/16 07:51 Laboratory Results 04/23/16 05:00 04/23/16 05:00 04/22/16 04/23/16 04/24/16 05:59 05:59 05:59 Intake Total 1680 1440 Output Total 1400 1525 Balance 280 -85 Physical Exam - Physical Exam General Appearance: WD/WN, alert, no apparent distress EENT: pharynx normal, other (Malampati class 3, unable to visualize posterior oropharynx), No pharyngeal erythema Neck: supple, No lymphadenopathy (R), No lymphadenopathy (L) Respiratory: normal breath sounds, No crackles, No rhonchi, No wheezing Cardiac/Chest: regular rate, rhythm, No edema Skin: normal color, warm/dry Neuro/Psych: no motor/sensory deficits, alert, normal mood/affect, oriented x 3 ICD10 Worksheet Patient Problems: Problems Problem Status Diagnosed Hyponatremia Acute SAH (subarachnoid hemorrhage) Acute UTI (urinary tract infection) Acute
[2016-04-23 14:22] LABS: HEMATOCRIT 32.3 % (38.0-47.0)
[2016-04-23 14:41] LABS: C-REACTIVE PROTEIN < 5.0 mg/L (<10.0)
[2016-04-23 14:58] LABS: PLATELET ESTIMATE ADEQUATE (ADEQ)
[2016-04-23] MEDS: ATORVASTATIN CALCIUM 10 MG TAB PO SCH (19:41)
[2016-04-23] MEDS: ACETAMINOPHEN 325 MG TAB PO PRN (19:42)
[2016-04-24] MEDS: LEVOTHYROXINE 50 MCG TAB PO SCH (05:41)
[2016-04-24] MEDS: [UNRECOGNIZED DRUG - OTHER] PO SCH (08:30)
[2016-04-24] MEDS: CYANO/VITAMIN B12 1000 MCG TAB PO SCH (08:30)
[2016-04-24] MEDS: PSYLLIUM METAMUCIL 1 PKT PO SCH (08:30)
[2016-04-24] MEDS: PYRIDOXINE HCL 25 MG TAB PO SCH (08:30)
[2016-04-24] MEDS: CALCIUM CARBONATE 500 MG TAB PO SCH ×2 (08:30→20:14)
[2016-04-24] MEDS: MOMETASONE 220MCG INHALER IH SCH (08:31)
--- NOTE | 2016-04-24 14:49 | SOAPPROG ---
SOAP Progress Note Assessment/Plan: Assessment: 76 yo F s/p subarachnoid hemorrhage from a left internal carotid artery aneurysm on 03/22/2016 and neurointerventional radiology coiling procedure: * Debility with deficits to mobility and activities of daily living. Initial FIM 70 on 04/16/16; improved to 90 on 04/23/16. Decreased safety awareness. Walked 200' FWW SBA. SBA bed mobility, t'fers. Stairs with 2 railings. S for ADLs but had posterior LOB in shower. Continue physical and occupational therapy to optimize mobility and activities of daily living. * Cognitive impairment, with STM deficit. Continue treatment per Speech and Language Pathology to the extent that she is willing to participate. * Hyponatremia. Resolved on BMP 04/18/16, after salt tablets tapered form TID to QD. D/C salt tablets starting 04/19/16. Normal BMP 04/23/16. * Urinary tract infection. Completed ciprofloxacin as ordered out of the hospital through April 19, 2016. * Anemia. H/H 9.9/29.7 on 04/14/16. Improving 04/18/16. Improving on CBC . * Neutropenia: has low WBCs on prior CBC 04/18/16; now frankly neutropenic though mild; low lymphocytes as well. Due to viral URI? No other S/Sx infection. No abnormalities on peripheral smear, B12, folate, ESR, CRP. Repeat CBC 04/26/16. * Removed suture and zandra 04/19/16, >2 weeks since surgery. * H/O asthma? Resumed inhaled corticosteroid for cough starting 04/22/16. * History of vertigo. Not using meclizine; may be resolved. * Hypothyroidism. Continue her levothyroxine supplement. * Postmenopausal and post hysterectomy. She was taking estradiol prior to her hospitalization. Has not been continued. If she has return of postmenopausal symptoms, will consider resuming. * History of respiratory failure while in the hospital. Not using albuterol/ ipratropium nebulizer; change to MDI PRN. D/C inhaled steroid. * D/C PICC 04/21/16. Plans to discharge to her daughter's home; daughter will take 2 weeks off from work to assist. Family conference 04/25/16; plan for discharge 04/27/16. 04/24/16 14:48 Subjective: Does not want to do Speech Therapy. Excited about plan to discharge home in 3 days. Objective: Vital Signs Temp Pulse Resp BP Pulse Ox 36.9 C 80 16 135/77 H 98 04/24/16 05:07 04/24/16 05:07 04/24/16 05:07 04/24/16 05:07 04/24/16 05:07 Laboratory Results 04/23/16 13:56 04/23/16 05:00 04/23/16 04/24/16 04/25/16 05:59 05:59 05:59 Intake Total 1440 1000 300 Output Total 1525 3550 Balance -85 -2550 300 Physical Exam - Physical Exam General Appearance: WD/WN, alert, no apparent distress Respiratory: No respiratory distress, No accessory muscle use Skin: normal color, warm/dry Neuro/Psych: alert, normal mood/affect, oriented x 3, other (perseverative) ICD10 Worksheet Patient Problems: Problems Problem Status Diagnosed Hyponatremia Acute SAH (subarachnoid hemorrhage) Acute UTI (urinary tract infection) Acute
[2016-04-24] MEDS: ATORVASTATIN CALCIUM 10 MG TAB PO SCH (20:14)
[2016-04-25] MEDS: LEVOTHYROXINE 50 MCG TAB PO SCH (06:02)
[2016-04-25] MEDS: PSYLLIUM METAMUCIL 1 PKT PO SCH (08:50)
[2016-04-25] MEDS: CALCIUM CARBONATE 500 MG TAB PO SCH ×2 (08:51→19:39)
[2016-04-25] MEDS: [UNRECOGNIZED DRUG - OTHER] PO SCH (08:51)
[2016-04-25] MEDS: PYRIDOXINE HCL 25 MG TAB PO SCH (08:52)
[2016-04-25] MEDS: CYANO/VITAMIN B12 1000 MCG TAB PO SCH (08:52)
[2016-04-25] MEDS: MOMETASONE 220MCG INHALER IH SCH (08:52)
--- NOTE | 2016-04-25 10:13 | SOAPPROG ---
SOAP Progress Note Assessment/Plan: Assessment: 76 yo F s/p subarachnoid hemorrhage from a left internal carotid artery aneurysm on 03/22/2016 and neurointerventional radiology coiling procedure: * Debility with deficits to mobility and activities of daily living. Initial FIM 70 on 04/16/16; improved to 90 on 04/23/16. Decreased safety awareness. Walked 200' FWW SBA. SBA bed mobility, t'fers. Stairs with 2 railings. S for ADLs but had posterior LOB in shower. Continue physical and occupational therapy to optimize mobility and activities of daily living. * Cognitive impairment, with STM deficit. Continue treatment per Speech and Language Pathology to the extent that she is willing to participate. * Hyponatremia. Resolved on BMP 04/18/16, after salt tablets tapered form TID to QD. D/C salt tablets starting 04/19/16. Normal BMP 04/23/16. * Urinary tract infection. Completed ciprofloxacin as ordered out of the hospital through April 19, 2016. * Anemia. H/H 9.9/29.7 on 04/14/16. Improving 04/18/16. Improving on CBC . * Neutropenia: has low WBCs on prior CBC 04/18/16; now frankly neutropenic though mild; low lymphocytes as well. Due to viral URI? No other S/Sx infection. No abnormalities on peripheral smear, B12, folate, ESR, CRP. Repeat CBC 04/26/16. * Removed suture and zandra 04/19/16, >2 weeks since surgery. * H/O asthma? Resumed inhaled corticosteroid for cough starting 04/22/16. * History of vertigo. Not using meclizine; may be resolved. * Hypothyroidism. Continue her levothyroxine supplement. * Postmenopausal and post hysterectomy. She was taking estradiol prior to her hospitalization. Has not been continued. If she has return of postmenopausal symptoms, will consider resuming. * History of respiratory failure while in the hospital. Not using albuterol/ ipratropium nebulizer; change to MDI PRN. D/C inhaled steroid. * D/C'd PICC 04/21/16. Plans to discharge to her daughter's home; daughter will take 2 weeks off from work to assist. Family conference 04/25/16; plan for discharge 04/27/16. 04/25/16 10:13 Subjective: No complaints. Slept well. Still does not want to do ST. Objective: Vital Signs Temp Pulse Resp BP Pulse Ox 36.9 C 79 15 122/64 H 95 04/25/16 06:09 04/25/16 06:09 04/25/16 06:09 04/25/16 06:09 04/25/16 06:09 Laboratory Results 04/23/16 13:56 04/23/16 05:00 04/24/16 04/25/16 04/26/16 05:59 05:59 05:59 Intake Total 1000 960 250 Output Total 3550 1 Balance -2550 959 250 Physical Exam - Physical Exam General Appearance: WD/WN, alert, no apparent distress Respiratory: No respiratory distress, No accessory muscle use Skin: normal color, warm/dry Neuro/Psych: alert, normal mood/affect, oriented x 3, other (Perseverative) ICD10 Worksheet Patient Problems: Problems Problem Status Diagnosed Hyponatremia Acute SAH (subarachnoid hemorrhage) Acute UTI (urinary tract infection) Acute
[2016-04-25] MEDS: ATORVASTATIN CALCIUM 10 MG TAB PO SCH (19:39)
[2016-04-25] MEDS: ACETAMINOPHEN 325 MG TAB PO PRN (19:44)
[2016-04-26] MEDS: LEVOTHYROXINE 50 MCG TAB PO SCH (05:20)
[2016-04-26 07:44] VITALS: RESP 16
[2016-04-26] MEDS: CALCIUM CARBONATE 500 MG TAB PO SCH ×2 (08:45→20:06)
[2016-04-26] MEDS: [UNRECOGNIZED DRUG - OTHER] PO SCH (08:45)
[2016-04-26] MEDS: PYRIDOXINE HCL 25 MG TAB PO SCH (08:45)
[2016-04-26] MEDS: CYANO/VITAMIN B12 1000 MCG TAB PO SCH (08:45)
[2016-04-26] MEDS: PSYLLIUM METAMUCIL 1 PKT PO SCH (08:45)
[2016-04-26] MEDS: MOMETASONE 220MCG INHALER IH SCH (08:54)
[2016-04-26 09:20] LABS: ADD DIFF? NO; ADD MORPH? NO; ADD SCAN? NO; ATYPICAL LYMPHOCYTE FLAG 50 (0-99); FRAGMENT RBC FLAG 0 (0-99); HEMATOCRIT 33.9 % (38.0-47.0); HEMOGLOBIN 11.3 g/dL (12.6-16.3); LEFT SHIFT FLG 0 (0-99); LIPEMIA HEMOLYSIS FLAG 80 (0-99); MEAN CELL HEMOGLOBIN 32.8 pg (27.9-34.1); MEAN CELL HEMOGLOBIN CONCENTR. 33.3 g/dL (32.4-36.7); MEAN CELL VOLUME 98.3 fL (81.5-99.8); MEAN PLATELET VOLUME 10.4 fL (8.7-11.7); PLATELET CLUMPS FLAG 0 (0-99); PLATELET COUNT 253 10^3/uL (150-400); RED BLOOD CELL COUNT 3.45 10^6/uL (4.18-5.33); RED CELL DISTRIBUTION WIDTH 14.7 % (11.5-15.2)
--- NOTE | 2016-04-26 12:33 | SOAPPROG ---
SOAP Progress Note Assessment/Plan: Assessment: 76 yo F s/p subarachnoid hemorrhage from a left internal carotid artery aneurysm on 03/22/2016 and neurointerventional radiology coiling procedure: * Debility with deficits to mobility and activities of daily living. Initial FIM 70 on 04/16/16; improved to 90 on 04/23/16. Decreased safety awareness. Walked 200' FWW SBA. SBA bed mobility, t'fers. Stairs with 2 railings. S for ADLs but had posterior LOB in shower. Continue physical and occupational therapy to optimize mobility and activities of daily living. * Cognitive impairment, with STM deficit. Continue treatment per Speech and Language Pathology to the extent that she is willing to participate. * Hyponatremia. Resolved on BMP 04/18/16, after salt tablets tapered form TID to QD. D/C salt tablets starting 04/19/16. Normal BMP 04/23/16. * Urinary tract infection. Completed ciprofloxacin as ordered out of the hospital through April 19, 2016. * Anemia. H/H 9.9/29.7 on 04/14/16. Improving 04/18/16. Improving on CBC and 04/26/16 with Hgb up to 11.3. * Neutropenia: has low WBCs on prior CBC 04/18/16; now frankly neutropenic though mild; low lymphocytes as well. Due to viral URI? No other S/Sx infection. No abnormalities on peripheral smear, B12, folate, ESR, CRP. Stable on CBC 04/26/16 with WBCs 2.99 and no neutropenia. * Removed suture and zandra 04/19/16, >2 weeks since surgery. * H/O asthma? Resumed inhaled corticosteroid for cough starting 04/22/16. * History of vertigo. Not using meclizine; may be resolved. * Hypothyroidism. Continue her levothyroxine supplement. * Postmenopausal and post hysterectomy. She was taking estradiol prior to her hospitalization. Has not been continued. If she has return of postmenopausal symptoms, will consider resuming. * History of respiratory failure while in the hospital. Not using albuterol/ ipratropium nebulizer; change to MDI PRN. D/C inhaled steroid. * D/C'd PICC 04/21/16. Will need continued supervision for safety with ambulation and with balance for ADLs. Still with decreased memory and new learning. Will need supervision for meds and finances. Advise continued home PT, OT and TOWN PLANNER. Daughter will be available for 2 weeks to assist patient at her home. Discharge 04/27/16. 04/26/16 12:40 Subjective: No complaints. Has not had return of vertigo. Objective: Vital Signs Temp Pulse Resp BP Pulse Ox 36.5 C 77 16 135/80 H 94 04/26/16 07:43 04/26/16 07:43 04/26/16 07:43 04/26/16 07:43 04/26/16 07:43 Laboratory Results 04/26/16 05:20 04/23/16 05:00 04/25/16 04/26/16 04/27/16 05:59 05:59 05:59 Intake Total 960 1336 Output Total 1 Balance 959 1336 Physical Exam - Physical Exam General Appearance: WD/WN, alert, no apparent distress Respiratory: normal breath sounds, No crackles, No rhonchi, No wheezing Cardiac/Chest: regular rate, rhythm, No edema Skin: normal color, warm/dry Neuro/Psych: no motor/sensory deficits, alert, normal mood/affect, oriented x 3 ICD10 Worksheet Patient Problems: Problems Problem Status Diagnosed Hyponatremia Acute SAH (subarachnoid hemorrhage) Acute UTI (urinary tract infection) Acute
--- NOTE | 2016-04-26 12:48 | PDOREHIP ---
Admission [facility] - Admission - 3 Day Assessment Period Admission Date/Day 1: 04/13/16 Day 2: 04/14/16 Day 3: 04/15/16 Discharge [facility] - Discharge - 3 Day Assessment Period 2 Days Prior to Anticipated Discharge Date: 04/25/16 1 Day Prior to Anticipated Discharge Date: 04/26/16 Anticipated Discharge Date: 04/27/16 - Discharge Skin Conditions Unhealed Pressure Ulcer (1 or more/Stage 1 or >)-Discharge: 0. No
[2016-04-26] MEDS: ACETAMINOPHEN 325 MG TAB PO PRN (20:05)
[2016-04-26] MEDS: ATORVASTATIN CALCIUM 10 MG TAB PO SCH (20:06)
[2016-04-27 06:40] VITALS: BP 132/73; PULSE 77; TEMP 98; O2SAT 94
[2016-04-27] MEDS: [UNRECOGNIZED DRUG - OTHER] PO SCH (09:35)
[2016-04-27] MEDS: CALCIUM CARBONATE 500 MG TAB PO SCH (09:35)
[2016-04-27] MEDS: PYRIDOXINE HCL 25 MG TAB PO SCH (09:35)
[2016-04-27] MEDS: PSYLLIUM METAMUCIL 1 PKT PO SCH (09:35)
[2016-04-27] MEDS: CYANO/VITAMIN B12 1000 MCG TAB PO SCH (09:36)
[2016-04-27] MEDS: MOMETASONE 220MCG INHALER IH SCH (09:36)
[2016-04-27] MEDS: LEVOTHYROXINE 50 MCG TAB PO SCH (10:05)
--- NOTE | 2016-04-27 15:23 | PDDCSUM ---
Discharge Summary Discharge Summary: Date of Admission 04/13/16 Date of discharge: 04/27/2016 Discharge Dx: SDH Secondary dx: Debility Cog impairment hyponatremia UTI Anemia Neutropenia vertigo Hypothyroidism Procedures: none Consultations: none HPI: 76 yo F s/p subarachnoid hemorrhage from a left internal carotid artery aneurysm on 03/22/2016 and neurointerventional radiology coiling procedure: Admitted for IPR following a L ICA aneurysm post radiology coiling, had impairments in cognition, mobility and self care warranting IPR. Initial FIM 70 on 04/16/16; improved to 90 on 04/23/16. Will need continued supervision at home for safety with ambulation and with balance for ADLs. Still with decreased memory and new learning. Will need supervision for meds and finances. Advise continued home PT, OT and PENSION MANAGER. Daughter will be available for 2 weeks to assist patient at her home. Hospital course: She completed the IPR program and discharged home with assistance from family. Issues outlined below: * Debility with deficits to mobility and activities of daily living. Walked 200' FWW SBA. SBA bed mobility, t'fers. Stairs with 2 railings. S for ADLs but had posterior LOB in shower. * Cognitive impairment, with STM deficit, improved with PENSION MANAGER treatment * Hyponatremia. Resolved on BMP 04/18/16, after salt tablets tapered form TID to QD. D/C salt tablets starting 04/19/16. Normal BMP 04/23/16. No follow up needed. * Urinary tract infection. Completed ciprofloxacin as ordered out of the hospital through April 19, 2016. No followup needed. * Anemia. H/H 9.9/29.7 on 04/14/16. Improving 04/18/16. Improving on CBC and 04/26/16 with Hgb up to 11.3. Monitor with PCP as outpatient. * Neutropenia: has low WBCs on prior CBC 04/18/16; now frankly neutropenic though mild; low lymphocytes as well. Due to viral URI? No other S/Sx infection. No abnormalities on peripheral smear, B12, folate, ESR, CRP. Stable on CBC 04/26/16 with WBCs 2.99 and no neutropenia. Follow up with PCP. * Removed suture and zandra 04/19/16, >2 weeks since surgery. No follow up needed. * H/O asthma? Resumed inhaled corticosteroid for cough starting 04/22/16. Follow up with PCP. * History of vertigo. Not using meclizine; may be resolved. No follow up needed. * Hypothyroidism. Continue her levothyroxine supplement. Follow up with PCP. * Postmenopausal and post hysterectomy. She was taking estradiol prior to her hospitalization. Has not been continued. If she has return of postmenopausal symptoms, would consider resuming. Follow up with PCP. * History of respiratory failure while in the hospital. Not using albuterol/ ipratropium nebulizer; change to MDI PRN. D/C inhaled steroid. Follow up with PCP. * D/C'd PICC 04/21/16. Condition: Stable, ambulating with FWW with supervision, self care with supervision and assistive devices. Continued short term memory and cog issues, recommending supervision. Dispo: Home with Family Discharge medications: see discharge medication form DC instructions: per handout and above. No driving, recommend avoiding alcohol. Go to the emergency room with new neurological changes Regular diet with thin liquids. Pending studies: None Recommendations: Follow up with PCP in 1-2 weeks, neurology in 1 week.
== END 2016-04-27 13:50 | disposition home health service (06) | DRG 949 ==
LOC: BREH 13:50
PROVIDERS: ADMIT Internal Medicine; ATTEND Internal Medicine
PROC: F07M3ZZ Motor Function Treatment of Musculoskeletal System - Whole Body (ICD-10-PCS; principal; 2016-04-13)
PROC: F08Z7ZZ Vocational Activities and Functional Community or Work Reintegration Skills Treatment (ICD-10-PCS; principal; 2016-04-13)
PROC: F0636ZZ Communicative/Cognitive Integration Skills Treatment of Neurological System - Whole Body (ICD-10-PCS; principal; 2016-04-13)
DX: Z48.812 Encounter for surgical aftercare following surgery on the circulatory system (principal); I60.0 Nontraumatic subarachnoid hemorrhage from carotid siphon and bifurcation; R53.81 Other malaise; G31.84 Mild cognitive impairment of uncertain or unknown etiology; N39.0 Urinary tract infection, site not specified; D64.9 Anemia, unspecified; E87.1 Hypo-osmolality and hyponatremia; R42 Dizziness and giddiness
CPT/HCPCS: 82607-90; 92507-GN; 92522-GN; 92526; 92610; 97110-GO; 97110-GP; 97112-GP; 97116-GP; 97162-GP; 97167-GO; 97530-GO; 97530-GP; 97532-GO; 97535-GO; 99366-GO

== ENCOUNTER → 2016-07-27 | Outpatient (CLI) | payer OTHER, MEDICARE | LOC: CIMAGING 10:11 | DX: Z12.31 Encounter for screening mammogram for malignant neoplasm of breast (principal) | CPT/HCPCS: G0202 ==

== ENCOUNTER → 2017-09-18 | Outpatient (CLI) | payer OTHER, MEDICARE | LOC: CIMAGING 09:59 | PROVIDERS: ATTEND Internal Medicine | DX: Z12.31 Encounter for screening mammogram for malignant neoplasm of breast (principal) ==